=== PATIENT | female | born 1960 | race Caucasian/White ===

== ENCOUNTER 2017-03-17 10:38 | Observation (INO) ==
[2017-03-17] MEDS ORDERED: 0.9 % Sodium Chloride 500 ML IVC ONE (11:04)
[2017-03-17] MEDS ORDERED: Aspirin 81 MG TAB.CHEW PO ONE (11:04)
--- NOTE | 2017-03-17 11:08 | Emergency Department Note ---
Disposition Clinical Impression: Chest pain Qualifiers: Chest pain type: unspecified Qualified Code(s): R07.9 - Chest pain, unspecified Disposition: Admitted As Inpatient Condition: Fair Time of Disposition: 12:30 General Adult HPI - General Chief complaint: ED Arrhythmia/Palpitations Stated complaint: feels like in a-fib Time Seen by Provider: 03/17/17 10:52 Source: patient Limitations: no limitations Nursing Notes Reviewed: Yes Vital Signs Reviewed: Yes - History of Present Illness HPI Narrative: 56-year-old female complains of mid substernal chest pressure/tightness for the past 12 hours. Patient states she has a history of A. fib and is having intermittent palpitations, and has URI symptoms of congestion of sinuses. Patient sees Dr. Green of cardiology. Patient denies any radiation of symptoms to neck and shoulder arms. Patient does admit to intermittent diaphoresis and hot flashes. Patient states she is sick contacts at home with young children who have URI symptoms. Pain Scale: 0 - Related Data Home Medications Medication Instructions Recorded Confirmed Apixaban [Eliquis] 5 mg PO BID 03/17/17 03/17/17 Atorvastatin Calcium [Lipitor] 20 mg PO DAILY 03/17/17 03/17/17 FLUoxetine HCl [Fluoxetine HCl] 10 mg PO DAILY 03/17/17 03/17/17 Levothyroxine Sodium 100 mcg PO DAILY 03/17/17 03/17/17 Losartan/Hydrochlorothiazide 1 tab PO DAILY 03/17/17 03/17/17 [Losartan-Hctz 100-25 mg Tab] Sotalol [Betapace] 80 mg PO BID 03/17/17 03/17/17 hydrOXYzine HCl [Hydroxyzine HCl] 25 mg PO HS PRN 03/17/17 03/17/17 Allergies Allergy/AdvReac Type Severity Reaction Status Date / Time No Known Allergies Allergy Verified 03/17/17 10:39 All systems ED: reviewed and negative except as stated. Review of Systems: As Per HPI Constitutional: Reports: chills. Denies: fever, weakness Eyes: Denies: vision change ENT ED: Reports: congestion Cardiovascular: Reports: chest pain, palpitations Respiratory: Denies: dyspnea, wheezes Gastrointestinal: Reports: nausea. Denies: abdominal pain, vomiting, diarrhea Genitourinary: Denies: urgency, dysuria Musculoskeletal: Denies: back pain Integumentary: Denies: rash Past Medical History - Past Medical History Attestation: Yes The following information was validated with the patient. Source: patient Medical history: Reports: atrial fibrillation, hyperlipidemia, hypertension Psychiatric history: Reports: no psych history - Social History Smoking Status: Never smoker Smokeless Tobacco Status: No Alcohol use: Reports: rarely Drug use: Reports: none Physical Exam Vital Signs Temperature 98 F 03/17/17 10:39 Pulse Rate 72 03/17/17 10:39 Respiratory Rate 20 03/17/17 10:39 Blood Pressure 162/83 03/17/17 10:39 O2 Sat by Pulse Oximetry 98 03/17/17 10:39 Temperature 98 F 03/17/17 10:39 Pulse Rate 72 03/17/17 10:39 Respiratory Rate 20 03/17/17 10:39 Blood Pressure 162/83 03/17/17 10:39 O2 Sat by Pulse Oximetry 98 03/17/17 10:39 Oxygen Delivery Oxygen Delivery Room Air 56-year-old female who is alert and oriented 3 and GCS of 15 and appears fatigued but in no acute distress. Vital signs showed patient is afebrile but has hypertension at 162/83. - General Limitations: no limitations General appearance: alert - Head Head exam: atraumatic, normocephalic, normal inspection - Eye Eye exam: Present: normal appearance, PERRL, EOMI - ENT ENT exam: normal exam, normal oropharynx, mucous membranes moist - Neck Neck exam: Present: normal inspection, full ROM, trachea midline - Chest Chest inspection: Present: normal inspection, symmetric chest wall rise - Respiratory Respiratory exam: Present: normal lung sounds bilaterally. Absent: respiratory distress, wheezes - Cardiovascular Cardiovascular exam: Present: regular rate, normal rhythm, normal heart sounds - Abdominal Exam Abdominal exam: Present: soft, Non-Tender. Absent: tenderness, distention, guarding, rebound, rigidity - Extremities Exam Extremities exam: Present: normal inspection, full ROM, normal capillary refill. Absent: tenderness, pedal edema - Back Exam Back exam: Present: normal inspection, full ROM. Absent: tenderness, CVA tenderness (R), CVA tenderness (L) Course Vital Signs Temperature 98 F 03/17/17 10:39 Pulse Rate 72 03/17/17 10:39 Respiratory Rate 20 03/17/17 10:39 Blood Pressure 162/83 03/17/17 10:39 O2 Sat by Pulse Oximetry 98 03/17/17 10:39 Temperature 98.0 F 03/17/17 18:41 Pulse Rate 62 03/17/17 18:41 Respiratory Rate 16 03/17/17 18:41 Blood Pressure 133/82 03/17/17 18:41 O2 Sat by Pulse Oximetry 97 03/17/17 20:58 Oxygen Delivery Oxygen Delivery Room Air Medical Decision Making - [facility] Narrative Medical decision making narrative: Chest pain differential diagnosis: ACS/MT, PE, but as far as the patient does not have any shortness of breath, pleuritic chest pain, history of DVT or PE, not on any hormone replacement therapy. Patient also concern for dysrhythmia with a history of A. fib. Patient's currently on Eloquis. Plan is for control and chest pain with aspirin and nitroglycerin. Labs CBC, BMP, troponin and chest x-ray. Patient has nausea and will be administered Zofran and IV normal saline since she has had poor intake over the past 24 hours Patient is pain-free after nitroglycerin sublingual 2 inch Nitro paste added. Patient states she feels a lot better. troponin is neg, labs unremarkable. CXR unremarkable. Pt understands and agrees to treatment and plan for admission, trending of troponins and further cardiac evaluation. Patient is accepted for admission by Dr. Ramos the Hospitalist. - Lab Data Lab results reviewed: Yes I reviewed the patient's lab results. Lab results narrative: Short CBC 03/17/17 Range/Units 11:18 WBC 7.8 (4.3-11.1) K/mcL Hgb 13.3 (11.5-15.4) g/dL Hct 39.6 (35.3-44.9) % Plt Count 279 (140-400) K/mcL Neutrophils # 5.7 (1.6-8.9) K/mcL BMP 03/17/17 Range/Units 11:18 Sodium 138 (136-145) mEq/L Potassium 3.5 (3.5-5.1) mEq/L Chloride 103 (98-107) mEq/L Carbon Dioxide 30 H (23-29) mEq/L BUN 11 (6-20) mg/dL Creatinine 0.65 (0.60-1.20) mg/dL Glucose 125 H (70-105) mg/dL Calcium 9.5 (8.6-10.3) mg/dL Cardiac Enzymes 03/17/17 Range/Units 11:18 Troponin I < 0.03 (< 0.04) ng/mL Result diagrams: 03/17/17 11:18 03/17/17 11:18 Lab Results 03/17/17 03/17/17 03/17/17 Range/Units 11:18 11:18 11:18 WBC 7.8 (4.3-11.1) K/mcL RBC 4.55 (3.82-4.97) M/mcL Hgb 13.3 (11.5-15.4) g/dL Hct 39.6 (35.3-44.9) % MCV 87.0 (83.0-100.0) fL MCH 29.2 (28.0-33.3) pg MCHC 33.6 (31.6-35.5) g/dL RDW 13.0 (11.5-14.5) % Plt Count 279 (140-400) K/mcL MPV 10.8 (9.4-12.4) fL Immature Gran % 0.5 (0-4) % Seg Neutrophils % 72.8 % Lymphocytes % 17.6 % Monocytes % 5.7 % Eosinophils % 2.8 % Basophils % 0.6 % Neutrophils # 5.7 (1.6-8.9) K/mcL Lymphocytes # 1.4 (0.6-4.6) K/mcL Monocytes # 0.4 (0.0-1.3) K/mcL Eosinophils # 0.2 (0.0-0.6) K/mcL Basophils # 0.1 (0.0-0.2) K/mcL APTT 36.5 H (26.0-36.0) Seconds Sodium 138 (136-145) mEq/L Potassium 3.5 (3.5-5.1) mEq/L Chloride 103 (98-107) mEq/L Carbon Dioxide 30 H (23-29) mEq/L BUN 11 (6-20) mg/dL Creatinine 0.65 (0.60-1.20) mg/dL Est GFR ( Amer) > 60 (> 60) Est GFR (Non-Af Amer) > 60 (> 60) BUN/Creatinine Ratio 17 (6-26) Glucose 125 H (70-105) mg/dL Calculated Osmolality 287 (280-300) Calcium 9.5 (8.6-10.3) mg/dL Troponin I (< 0.04) ng/mL 03/17/17 Range/Units 11:18 WBC (4.3-11.1) K/mcL RBC (3.82-4.97) M/mcL Hgb (11.5-15.4) g/dL Hct (35.3-44.9) % MCV (83.0-100.0) fL MCH (28.0-33.3) pg MCHC (31.6-35.5) g/dL RDW (11.5-14.5) % Plt Count (140-400) K/mcL MPV (9.4-12.4) fL Immature Gran % (0-4) % Seg Neutrophils % % Lymphocytes % % Monocytes % % Eosinophils % % Basophils % % Neutrophils # (1.6-8.9) K/mcL Lymphocytes # (0.6-4.6) K/mcL Monocytes # (0.0-1.3) K/mcL Eosinophils # (0.0-0.6) K/mcL Basophils # (0.0-0.2) K/mcL APTT (26.0-36.0) Seconds Sodium (136-145) mEq/L Potassium (3.5-5.1) mEq/L Chloride (98-107) mEq/L Carbon Dioxide (23-29) mEq/L BUN (6-20) mg/dL Creatinine (0.60-1.20) mg/dL Est GFR ( Amer) (> 60) Est GFR (Non-Af Amer) (> 60) BUN/Creatinine Ratio (6-26) Glucose (70-105) mg/dL Calculated Osmolality (280-300) Calcium (8.6-10.3) mg/dL Troponin I < 0.03 (< 0.04) ng/mL - Radiology Data Radiology results reviewed: Yes I reviewed the patient's radiology results. Chest X-Ray 03/17/17 11:04 IMPRESSION: Borderline cardiomegaly. Low lung volumes. No acute pulmonary disease. D/ / Emilio Richardson MD / Emilio Richardson MD Interpreting Provider: Emilio Richardson MD Attestation Statement - Attestation Attestation: I examined this patient and my medical decision-making was reviewed with the Resident Physician. I agree with the documented findings, disposition and treatment plan as described.
[2017-03-17] MEDS ORDERED: Ondansetron 4 MG/2 ML VIAL IVP PRN (11:14)
[2017-03-17 11:26] LABS: Basophils # 0.1 K/mcL (0.0-0.2); Basophils % 0.6 %; Eosinophils # 0.2 K/mcL (0.0-0.6); Eosinophils % 2.8 %; Hematocrit 39.6 % (35.3-44.9); Hemoglobin 13.3 g/dL (11.5-15.4); Immature Granulocytes % 0.5 % (0-4); Lymphocytes # 1.4 K/mcL (0.6-4.6); Lymphocytes % 17.6 %; Mean Corpuscular HGB Conc 33.6 g/dL (31.6-35.5); Mean Corpuscular Hemoglobin 29.2 pg (28.0-33.3); Mean Platelet Volume 10.8 fL (9.4-12.4); Monocytes # 0.4 K/mcL (0.0-1.3); Monocytes % 5.7 %; Neutrophils # 5.7 K/mcL (1.6-8.9); Platelet Count 279 K/mcL (140-400); Red Blood Count 4.55 M/mcL (3.82-4.97); Segmented Neutrophils % 72.8 %
[2017-03-17] MEDS: Nitroglycerin 0.4 MG TAB.SUBL SL ONE ×2 (11:33→12:27)
[2017-03-17 11:45] LABS: BUN/Creatinine Ratio 17 (6-26); Blood Urea Nitrogen 11 mg/dL (6-20); Calcium 9.5 mg/dL (8.6-10.3); Carbon Dioxide 30 mEq/L (23-29); Chloride 103 mEq/L (98-107); Glucose 125 mg/dL (70-105); Osmolality,Calculated 287 (280-300); Potassium 3.5 mEq/L (3.5-5.1); Sodium 138 mEq/L (136-145); eGFR For African Americans > 60 (> 60); eGFR For Non-African Americans > 60 (> 60)
[2017-03-17] MEDS ORDERED: Nitroglycerin 1 INCH/GM PACKET TP ONE (12:26)
[2017-03-17] MEDS ORDERED: Naloxone 0.4 MG/ML INJ IVP PRN (16:08)
[2017-03-17] MEDS ORDERED: hydrOXYzine pamoate 25 MG CAPSULE PO PRN (16:12)
--- NOTE | 2017-03-17 16:20 | Internal Med History&Physical ---
Date of Encounter: 03/17/17 Time of Encounter: 16:17 Assessment and Plan (1) Chest pain Current visit: Yes Status: Acute 56/female Heart score 3. Admitted with chest pain. Plan: Admitted as an observation. Cardiac diet. Cycle troponin. 2-D echocardiogram. Repeat labs tomorrow morning. If echocardiogram/3 troponins negative: Consider stress test. Stress test is positive: Call cardiology Stress Test negative patient can go home Qualifiers: Chest pain type: unspecified Qualified Code(s): R07.9 - Chest pain, unspecified (2) Atrial fibrillation Current visit: Yes Status: Acute chronic atrial fibrillation rate control: sotalol anticoagulation: Eliquis. will continue same' Qualifiers: Atrial fibrillation type: chronic Qualified Code(s): I48.2 - Chronic atrial fibrillation (3) DVT prophylaxis Current visit: Yes Status: Acute eliquis MDM: mild to moderate risk due to underlying comorbid conditions. Internal Medicine - H&P: HPI Chief complaint: Chest pressure Admitted From: Emergency Dept Plans for Post Hospital Care: Home History of present illness: Ms. Cowan is a 56 year old female who presented to emergency department with worsening chest pressure along with the occasional chest pain in the left precordial area which is radiating to her arm. Patient claims that her pressure was getting worse over the last 48 hours along with the pain was getting more and more sharp. The radiation of the pain was concerning to her along with the intensity of the pain. Patient is known to have atrial fibrillation and presently on sotalol/statin/eliquis. Her rate is well controlled. Patient was evaluated in the emergency room for possible chest pain with uncertain etiology. Basic labs were drawn. First set of troponin was negative. EKG was within normal limits. Patient was admitted chest pain to rule out ACS. Past Med Surg Social Fam HX - Past Medical History Medical history: atrial fibrillation, hyperlipidemia, hypertension Psychiatric history: no psych history - Social History Smoking Status: Never smoker Smokeless Tobacco Status: No Alcohol use: rarely Drug use: none - Family History Mother Living Status: Hx Family Cardiac Disorders: Yes Father Living Status: Hx Family Cardiac Disorders: Yes Internal Medicine - H&P: Meds Apixaban [Eliquis] 5 mg PO BID 03/17/17 [History] Atorvastatin Calcium [Lipitor] 20 mg PO DAILY 03/17/17 [History] FLUoxetine HCl [Fluoxetine HCl] 10 mg PO DAILY 03/17/17 [History] Levothyroxine Sodium 100 mcg PO DAILY 03/17/17 [History] Losartan/Hydrochlorothiazide [Losartan-Hctz 100-25 mg Tab] 1 tab PO DAILY [History] Sotalol [Betapace] 80 mg PO BID 03/17/17 [History] hydrOXYzine HCl [Hydroxyzine HCl] 25 mg PO HS PRN 03/17/17 [History] 3 Allergy/AdvReac Type Severity Reaction Status Date / Time No Known Allergies Allergy Verified 03/17/17 10:39 All Systems PM: A 10-system review of systems was performed and is negative for pertinent findings except as documented above in the HPI. - Constitutional Constitutional: no chills, no fever(s), no night sweats - EENT Eyes: no change in vision, no discharge, no pain, no photophobia Ears: no ear discharge, no ear pain, no tinnitus Nose, mouth and throat: no dysphagia, no nasal discharge, no neck pain, no sore throat - Cardiovascular Cardiovascular ROS IM: chest pain, diaphoresis, no dyspnea, no lightheadedness, no palpitations, no syncope - Respiratory Respiratory: no cough, no dyspnea, no wheezing, no excessive phlegm production - Gastrointestinal Gastrointestinal: no abdominal pain, no diarrhea, no hematemesis, no hematochezia, no melena, no nausea, no vomiting - Genitourinary Genitourinary: no change in urinary stream, no dysuria, no flank pain, no hematuria - Musculoskeletal Musculoskeletal ROS IM: no numbness, no tingling - Integumentary Integumentary IM: no rash, no unusual bruising - Neurological Neurological ROS: no confusion, no convulsions, no focal weakness, no numbness, no tingling, no tremor(s) - Hematologic/Lymphatic Hematologic/Lymphatic: no easy bruising - Constitutional Vitals: Temp Pulse Resp BP Pulse Ox 98.1 F 52 17 126/79 97 03/17/17 15:31 03/17/17 15:31 03/17/17 15:31 03/17/17 15:31 03/17/17 15:31 General appearance: Present: A&O X 3, pleasant, no acute distress, answers questions appropriately - Head Head exam: Present: atraumatic, normocephalic - Eye Eye exam: Present: PERRL, conjuntiva pink, sclera anicteric Pupils: Present: PERRL - Neck Neck exam general surgery: Present: supple, trachea midline. Absent: lymphadenopathy - Respiratory Respiratory exam: Present: CTAB. Absent: accessory muscle use, rales, rhonchi, wheezes - Cardiovascular Cardiovascular exam: Present: RRR, +S1, +S2. Absent: diastolic murmur, gallop, rubs, systolic murmur - GI/Abdominal GI/Abdominal exam: Present: normal bowel sounds, soft, no peritoneal signs. Absent: distended, tenderness - Extremities Exam Extremities exam: Present: warm, radial pulses palpable and symmetrical. Absent : calf tenderness, cyanotic, pedal edema - Neurological Exam Neurological exam: Present: CN II-XII intact, oriented X3, no focal deficits. Absent: pronater drift, facial droop, speech deficit - Skin Skin exam: Present: dry, intact Internal Med - H&P Results - Labs CBC & Chem 7: 03/17/17 11:18 03/17/17 11:18
[2017-03-17] MEDS: Apixaban 5 MG TABLET PO SCH (21:01)
[2017-03-18 04:59] LABS: Basophils # 0.1 K/mcL (0.0-0.2); Basophils % 0.8 %; Eosinophils # 0.3 K/mcL (0.0-0.6); Eosinophils % 4.3 %; Hematocrit 38.7 % (35.3-44.9); Hemoglobin 12.9 g/dL (11.5-15.4); Immature Granulocytes % 0.4 % (0-4); Lymphocytes # 2.3 K/mcL (0.6-4.6); Lymphocytes % 30.8 %; Mean Corpuscular HGB Conc 33.3 g/dL (31.6-35.5); Mean Corpuscular Hemoglobin 29.5 pg (28.0-33.3); Mean Corpuscular Volume 88.4 fL (83.0-100.0); Mean Platelet Volume 11.2 fL (9.4-12.4); Monocytes # 0.7 K/mcL (0.0-1.3); Monocytes % 9.5 %; Platelet Count 259 K/mcL (140-400); Red Blood Count 4.38 M/mcL (3.82-4.97); Red Cell Distribution Width 13.1 % (11.5-14.5); Segmented Neutrophils % 54.2 %
[2017-03-18 05:09] LABS: INR 1.4; Prothrombin Time 15.1 Seconds (9.4-12.1)
[2017-03-18 05:12] LABS: Activated Partial Thrombo Time 33.5 Seconds (26.0-36.0)
[2017-03-18 05:13] LABS: Alanine Aminotransferase 11 Units/L (7-52); Albumin 3.6 g/dL (3.5-5.7); Albumin/Globulin Ratio 1.1 (1.1-2.2); Alkaline Phosphatase 71 Units/L (34-104); Aspartate Amino Transferase 15 Units/L (13-39); BUN/Creatinine Ratio 20 (6-26); Bilirubin,Total 0.7 mg/dL (0.3-1.0); Blood Urea Nitrogen 15 mg/dL (6-20); Calcium 9.3 mg/dL (8.6-10.3); Carbon Dioxide 30 mEq/L (23-29); Chloride 105 mEq/L (98-107); Chol/HDL Ratio 3.4 (0-4.9); Cholesterol 130 mg/dL (< 200); Globulin 3.3 g/dL (2.4-3.5); Glucose 93 mg/dL (70-105); HDL Cholesterol 38 mg/dL (40-59); LDL Cholesterol,Calculated 70 mg/dL (0-99); Magnesium 2.1 mg/dL (1.6-2.6); Osmolality,Calculated 291 (280-300); Phosphorous 2.8 mg/dL (2.7-4.5); Potassium 3.5 mEq/L (3.5-5.1); Sodium 140 mEq/L (136-145); Total Protein 6.9 g/dL (6.4-8.9); Triglycerides 111 mg/dL (< 150); eGFR For African Americans > 60 (> 60); eGFR For Non-African Americans > 60 (> 60)
[2017-03-18] MEDS ORDERED: Losartan/HCTZ 50-12.5 TABLET PO SCH (09:00)
[2017-03-18] MEDS ORDERED: FLUoxetine HCl 10 MG CAPSULE PO SCH (09:00)
[2017-03-18] MEDS ORDERED: Aspirin Enteric Coated 81 MG Tablet PO SCH (09:00)
[2017-03-18] MEDS: Apixaban 5 MG TABLET PO SCH (09:10)
[2017-03-18 11:26] VITALS: BP 135/73
--- NOTE | 2017-03-18 15:23 | Discharge Summary ---
Date of Encounter: 03/18/17 Time of Encounter: 15:20 - Discharge Diagnosis (1) Chest pain Priority: Primary Status: Resolved Comments: presented with chest tightness that radiated to right arm. Resolved without intervention. CXR non-acute. Serial troponin negative, EKG without acute ST changes. TTE with EF EF 40%, mildly dilated left ventricle, moderate diastolic dysfunction and mild-moderate mitral regurgitation. Previous EF unknonw. Appears euvolemic. Discussed inpatient stress test versus Cardiology consult with patient and she declined both as chest pain free. 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 Continue ASA, eliquis, BB, ARB. Advised patient to call [facility] on 03/20/[address] Green. Advised to return to ER if CP recurs. Qualifiers: Chest pain type: unspecified Qualified Code(s): R07.9 - Chest pain, unspecified (2) Atrial fibrillation Priority: Secondary Status: Chronic Comments: per hx. rate controlled with HRs in 50s. Follows with Dr. Green and per chart review, appears to be chronically, mildly bradycardic on sotalol. Asymptomatic. Continue home sotalol, Eliquis Qualifiers: Atrial fibrillation type: chronic Qualified Code(s): I48.2 - Chronic atrial fibrillation (3) Essential hypertension Priority: Secondary Status: Chronic Comments: per hx. BP controlled. Cont home BP medication. (4) Hypothyroidism Priority: Secondary Status: Chronic Comments: per hx. Cont home levothyroxine Qualifiers: Hypothyroidism type: acquired Qualified Code(s): E03.9 - Hypothyroidism, unspecified (5) Obesity due to excess calories Priority: Secondary Status: Chronic Comments: BMI 44, weight 126KG. lifestyle modification is strongly encouraged Qualifiers: Obesity classification: adult class 3 (BMI >= 40) Serious obesity comorbidity presence: with serious comorbidity Qualified Code(s): E66.01 - Morbid (severe) obesity due to excess calories; Z68.41 - Body mass index (BMI) 40.0-44.9, adult; Z68.41 - Body mass index (BMI) 40.0-44.9, adult; Z68.41 - Body mass index (BMI) 40.0-44.9, adult; Z68.41 - Body mass index (BMI) 40.0-44.9 , adult - Discharge Medications Home Medications: Apixaban [Eliquis] 5 mg PO BID 03/17/17 [History] Atorvastatin Calcium [Lipitor] 20 mg PO DAILY 03/17/17 [History] FLUoxetine HCl [Fluoxetine HCl] 10 mg PO DAILY 03/17/17 [History] Levothyroxine Sodium 100 mcg PO DAILY 03/17/17 [History] Losartan/Hydrochlorothiazide [Losartan-Hctz 100-25 mg Tab] 1 tab PO DAILY [History] Sotalol [Betapace] 80 mg PO BID 03/17/17 [History] hydrOXYzine HCl [Hydroxyzine HCl] 25 mg PO HS PRN 03/17/17 [History] Allergies/Adverse Reactions: 3 Allergy/AdvReac Type Severity Reaction Status Date / Time No Known Allergies Allergy Verified 03/17/17 10:39 Procedures/tests Complete & Pending: Procedures Performed prior 72 hours Category Date Time Status EV echocardiogram Routine Y 03/18/17 16:13 Completed Date of admission: 03/17/17 12:05 Primary care physician: Oksana Gabriel MD Discharging clinician: Radha Hernandez Anticipated date of discharge: 03/18/17 - Patient Status Disposition: Home, Self-Care Condition: Good Functional capacity at discharge: independent ambulation Overall status at discharge: patient is back to baseline - Discharge Instructions Instructions: Influenza Virus Vaccine (Injection), Atrial Fibrillation (DC), Chest Pain (DC), Hypothyroidism (DC), Weight Management (DC), Chronic Hypertension (DC), Obesity (DC) Follow Up With: NONE,PCP [Non-Partnered Physician] - - Diet and Activity Activity: increase activity as tolerated Diet: advance to your usual diet Interval History: Seen and examined at bedside; patient is new to me. Information obtained from chart review and patient report. Patient says she feels better, no further chest pain/tightness. No shortness of breath. She follows with Dr. Green with cardiology. Advised her that nuclear stress test is recommended and offered testing inpatient however patient declined. Prefers to follow up outpatient with Dr. Green. Advised her to return to ER if chest pain/SOB return. Patient verbalizes understanding. Hospital course: See assessment and plan for hospital course - Time Spent with Patient Total time spent providing and/or coordinating discharge services: - Constitutional Vitals: Temp Pulse Resp BP Pulse Ox 98.9 F 54 16 135/73 95 03/18/17 11:25 03/18/17 11:25 03/18/17 11:25 03/18/17 11:25 03/18/17 11:25 General appearance: Present: A&O X 3, pleasant, no acute distress, answers questions appropriately - Head Head exam: Present: atraumatic, normocephalic - Eye Eye exam: Present: PERRL, conjuntiva pink, sclera anicteric Pupils: Present: PERRL - Neck Neck exam general surgery: Present: supple, trachea midline. Absent: lymphadenopathy - Respiratory Respiratory exam: Present: CTAB. Absent: accessory muscle use, rales, rhonchi, wheezes - Cardiovascular Cardiovascular exam: Present: RRR, +S1, +S2. Absent: diastolic murmur, gallop, rubs, systolic murmur - GI/Abdominal GI/Abdominal exam: Present: normal bowel sounds, soft, no peritoneal signs. Absent: distended, tenderness - Extremities Exam Extremities exam: Present: warm, radial pulses palpable and symmetrical. Absent : calf tenderness, cyanotic, pedal edema - Neurological Exam Neurological exam: Present: CN II-XII intact, oriented X3, no focal deficits. Absent: pronater drift, facial droop, speech deficit - Skin Skin exam: Present: dry, intact
--- NOTE | 2017-03-19 10:30 | Electrocardiograph Report ---
[place] [place] [facility] Test Date: 2017-03-17 Pat Name: Shelly Cowan Department: 104 Room: 3B55 Gender: F [employer] Operations Vice President: YAZMIN : 1960 Requested By: Rocco Dang Order Number: [id number] Reading MD: Kevin Sullivan DO Measurements Intervals [place] Rate: 56 P: 41 ME: 148 QRS: 15 QRSD: 98 T: -7 QT: 437 QTc: 428 Interpretive Statements SINUS BRADYCARDIA NONSPECIFIC T-WAVE ABNORMALITY Electronically Signed On 03-19-2017 10:28:27 EST by Kevin Sullivan DO
== END 2017-03-18 18:45 | disposition home or self-care (01) ==
LOC: EMEROO 10:38 → 3BNU 10:38
PROVIDERS: ADMIT Internal Medicine; ATTEND Registered Nurse